=== PATIENT | female | born 1950 | race Caucasian/White ===

== ENCOUNTER → 2017-02-12 | Day surgery (SDC) | payer OTHER ==
[~2017-02-12] MED LIST: ACETAMINOPHEN 325 MG TAB PO ONE; DEXAMETHASONE 4 MG/ML VIAL IVP ONE; FAMOTIDINE 20 MG TAB PO ONE; LIDOCAINE 1% 2 ML INJ ID PRN; LIDOCAINE 2% 5 ML SDV ONE; LR 1,000 ML IV ONE; PROPOFOL/EMULSION 500 MG/50 ML BOTTLE IV ONE; ROPIVACAINE 0.2% 80 MG, EPINEPHrine 0.2 MG, KETOROLAC TROMETHAMINE 30 MG in BAG 0 ML IU ONE; TRANEXAMIC ACID 3,000 MG in NS 50 ML IRR ONE; TRANEXAMIC ACID 3,000 MG/50 ML BAG IRR ONE; VANCOMYCIN 1 GM VIAL ONE; ceFAZolin 2 GM/DEXTROSE 100 ML IV ONE
--- NOTE | 2017-02-12 10:41 | PDHPUP ---
History & Physical Update H&P update statement: This history and physical update is based on an assessment of the patient which was completed after admission or registration (within 24 hours), but prior to the surgery/procedure. H&P update: H&P reviewed & patient examined, no change in patient's condition since H&P completed
[2017-02-12 11:06] VITALS: BP 122/76; PULSE 89; RESP 16; TEMP 97.7; O2SAT 94
== END | disposition home or self-care (01) ==
LOC: F3N 09:58 → UNDOADMIN 09:58 → FSGY 09:58 → EDSTATUS 12:15
PROVIDERS: ATTEND Orthopaedic Surgery
DX: M17.11 Unilateral primary osteoarthritis, right knee (principal); Z53.09 Procedure and treatment not carried out because of other contraindication
CPT/HCPCS: J0171; J0690; J1100; J1885; J2704; J2795; J3370

== ENCOUNTER 2017-02-21 08:20 | Inpatient (IN) | payer OTHER ==
[~2017-02-21 08:20] MED LIST changes: -ACETAMINOPHEN 325 MG TAB PO ONE; -DEXAMETHASONE 4 MG/ML VIAL IVP ONE; -FAMOTIDINE 20 MG TAB PO ONE; -LIDOCAINE 1% 2 ML INJ ID PRN; -LIDOCAINE 2% 5 ML SDV ONE; -LR 1,000 ML IV ONE; -PROPOFOL/EMULSION 500 MG/50 ML BOTTLE IV ONE; -ceFAZolin 2 GM/DEXTROSE 100 ML IV ONE
[2017-02-21] MEDS ORDERED: DEXAMETHASONE 4 MG/ML VIAL IVP ONE (09:09)
[2017-02-21] MEDS ORDERED: FAMOTIDINE 20 MG TAB PO ONE (09:09)
[2017-02-21] MEDS ORDERED: ACETAMINOPHEN 325 MG TAB PO ONE (09:09)
[2017-02-21] MEDS ORDERED: ceFAZolin 2 GM/DEXTROSE 100 ML IV ONE (09:09)
[2017-02-21] MEDS ORDERED: LR 1,000 ML IV ONE (09:19)
[2017-02-21] MEDS ORDERED: LIDOCAINE 1% 2 ML INJ ID PRN (09:19)
--- NOTE | 2017-02-21 09:57 | PDANEPAE ---
ANE History of Present Illness 66 yo F here with OA for R TKA ANE Past Medical History - Cardiovascular History Hx Hypertension: No Hx Arrhythmias: No Hx Chest Pain: No Hx Coronary Artery / Peripheral Vascular Disease: No Hx CHF / Valvular Disease: No Hx Palpitations: No - Pulmonary History Hx COPD: No Hx Asthma/Reactive Airway Disease: No Hx Recent Upper Respiratory Infection: No Hx Oxygen in Use at Home: No Hx Sleep Apnea: No Sleep Apnea Screening Result - Last Documented: Negative - Neurologic History Hx Cerebrovascular Accident: No Hx Seizures: No Hx Dementia: No - Endocrine History Hx Diabetes: No - Renal History Hx Renal Disorders: No - Liver History Hx Hepatic Disorders: No - Neurological & Psychiatric Hx Hx Neurological and Psychiatric Disorders: No - Cancer History Hx Cancer: Yes Cancer History Comment: SKIN CANCER 2010 AND 2015 - Congenital Disorder History Hx Congenital Disorders: No - GI History Hx Gastrointestinal Disorders: No - Chronic Pain History Chronic Pain: Yes (RIGHT KNEE AND RIGHT FOOT) - Surgical History Prior Surgeries: CATARACT SURGERY OU 08/2016. DENTAL IMPLANTS X 2. LEFT HIP REPLACEMENT 2012. LEFT KNEE REPLACEMENT 16 YRS AGO. HYSTERECTOMY 25 YRS AGO ANE Review of Systems - Exercise capacity METS (RN): 4 METS - Systems Muscolosketal: Reports: other (OA) ANE Patient History - Allergies Allergies/Adverse Reactions: No Known Allergies Allergy (Unverified 02/04/17 10:49) - Home Medications Home medications: home medication list seen and reviewed Home Medications: Multivitamins [Multivitamin (*)] 2 each PO DAILY 02/04/17 [Last Taken Unknown] - NPO status NPO Since - Liquids (Date): 02/21/17 NPO Since - Liquids (Time): 06:45 NPO Since - Solids (Date): 02/20/17 NPO Since - Solids (Time): 19:30 - Anes Hx Anes Hx: slow to awaken from anesthesia - Smoking Hx Smoking Status: Never smoked - Alcohol Use Alcohol Use: Occasionally - Family Anes Hx Family Anes Hx: none Family Hx Anesthesia Complications: NEG ANE Labs/Vital Signs - Vital Signs Blood Pressure: 133/86 Heart Rate: 74 Respiratory Rate: 18 O2 Sat (%): 95 Height: 160.02 cm Weight: 78.925 kg ANE Physical Exam - Airway Neck exam: FROM Mallampati Score: Class 3 Mouth exam: normal dental/mouth exam - Pulmonary Pulmonary: no respiratory distress, clear to auscultation - Cardiovascular Cardiovascular: regular rate and rhythym, no murmur, rub, or gallop - ASA Status ASA Status: II ANE Anesthesia Plan Anesthesia Plan: MAC, spinal Regional Anesthesia: adductor canal FNB
[2017-02-21] MEDS ORDERED: MIDAZOLAM 2 MG/2 ML VIAL IVP ONE (09:59)
[2017-02-21] MEDS ORDERED: MIDAZOLAM 2 MG/2 ML VIAL ONE (10:07)
[2017-02-21] MEDS ORDERED: PROPOFOL/EMULSION 500 MG/50 ML BOTTLE IV ONE (10:08)
[2017-02-21] MEDS ORDERED: ONDANSETRON DISINTEGRATING 4 MG TAB PO PRN (10:40)
[2017-02-21] MEDS ORDERED: DIPHENOXYLATE/ATROPINE LOMOTIL 1 TAB PO PRN (10:40)
[2017-02-21] MEDS ORDERED: PROMETHAZINE HCL 25 MG SUPPR PR PRN (10:40)
[2017-02-21] MEDS ORDERED: LACTULOSE 20 GM/30 ML UDCUP PO PRN (10:40)
[2017-02-21] MEDS ORDERED: diphenhydrAMINE 25 MG CAP PO PRN (10:40)
[2017-02-21] MEDS ORDERED: ONDANSETRON 4 MG/2 ML VIAL IVP PRN ×2 (10:40→11:44)
[2017-02-21] MEDS ORDERED: PROMETHAZINE HCL 25 MG/ML INJ IVP PRN (10:40)
[2017-02-21] MEDS ORDERED: MAGNESIUM HYDROXIDE 30 ML UDCUP PO PRN (10:40)
[2017-02-21] MEDS ORDERED: BISACODYL 10 MG SUPP PR PRN (10:40)
[2017-02-21] MEDS ORDERED: PHARMACY PAIN CONSULT 1 EA MISC PRN (10:40)
[2017-02-21] MEDS ORDERED: METOCLOPRAMIDE 10 MG/2 ML VIAL IVP PRN (10:40)
[2017-02-21] MEDS ORDERED: TEMAZEPAM 15 MG CAP PO PRN (10:40)
[2017-02-21] MEDS ORDERED: POLYETHYLENE GLYCOL 3350 17 GM PKT PO PRN (10:40)
[2017-02-21] MEDS ORDERED: clonIDINE 1 MG/10 ML VIAL EP ONE (10:56)
[2017-02-21] MEDS ORDERED: ROPIVACAINE HCL 150 MG/30 ML INJ ONE (10:56)
[2017-02-21] MEDS ORDERED: PROPOFOL 200 MG/20 ML VIAL ONE (11:25)
--- NOTE | 2017-02-21 11:42 | POSTOPPROG ---
Post Op Note Date of Operation: 02/21/17 Surgeon: Olimpia Salmon [id number] Architect: Grecia Salmon PAc Anesthesiologist: Chrissie Anesthesia: Spinal Pre-op Diagnosis: R knee DJD Post-op Diagnosis: same Indication: pain Procedure: R TKA Findings: DJD knee Inf/Abcess present in the surg proc area at time of surgery?: No EBL: 50-100
[2017-02-21] MEDS ORDERED: HYDROmorphONE/DILAUDID 1 MG/ML SYR IVP PRN (11:44)
[2017-02-21] MEDS ORDERED: NALOXONE HCL 0.4 MG/ML INJ IVP PRN (11:44)
[2017-02-21] MEDS ORDERED: fentaNYL 100 MCG/2 ML INJ IVP PRN (11:44)
[2017-02-21] MEDS ORDERED: ACETAMINOPHEN 500 MG TAB PO PRN (11:44)
[2017-02-21] MEDS ORDERED: OXYCODONE/APAP 5/325 TAB PO PRN (11:44)
[2017-02-21] MEDS: LR 1,000 ML IV SCH ×2 (13:40→15:36)
--- NOTE | 2017-02-21 15:06 | POSTANESTH ---
Post Anesthetic Evaluation Cardiovascular Status: Normal, Stable, Similar to Pre-Op Cond Respiratory Status: Normal, Stable, Similar to Pre-op Cond. Level of Consciousness/Mental Status: Can Participate in Eval, Alert and Oriented Pain Control: Adequate, Prn Tx Ordered Nausea/Vomiting Control: Adequate, Prn Tx Ordered Complications Possibly Related to Anesthesia: None Noted
[2017-02-21] MEDS: CYCLOBENZAPRINE 10 MG TAB PO PRN (15:35)
[2017-02-21] MEDS: ACETAMINOPHEN 325 MG TAB PO SCH ×3 (15:35→23:29)
[2017-02-21] MEDS: ceFAZolin 2 GM/DEXTROSE 100 ML IV SCH ×2 (15:36→22:07)
[2017-02-21] MEDS ORDERED: WARFARIN SODIUM 5 MG TAB PO SCH (16:00)
[2017-02-21] MEDS: oxyCODONE IR 5 MG TAB PO PRN ×2 (20:02→23:28)
[2017-02-21] MEDS: FAMOTIDINE 20 MG TAB PO SCH (20:03)
[2017-02-21] MEDS: SENNOSIDES/DOCUSATE SODIUM TAB PO SCH (20:03)
[2017-02-22] MEDS: oxyCODONE IR 5 MG TAB PO PRN ×3 (04:18→12:34)
[2017-02-22 05:19] LABS: HEMATOCRIT 42.4 % (38.0-47.0); HEMOGLOBIN 14.4 g/dL (12.6-16.3)
[2017-02-22 05:28] LABS: INR 1.05 (0.83-1.16); PROTIME(PATIENT) 13.6 SEC (12.0-15.0)
[2017-02-22] MEDS: ACETAMINOPHEN 325 MG TAB PO SCH ×2 (05:31→12:33)
[2017-02-22] MEDS: CYCLOBENZAPRINE 10 MG TAB PO PRN (08:27)
[2017-02-22] MEDS: SENNOSIDES/DOCUSATE SODIUM TAB PO SCH (08:27)
[2017-02-22] MEDS: FAMOTIDINE 20 MG TAB PO SCH (08:27)
[2017-02-22] MEDS ORDERED: ENOXAPARIN 40 MG/0.4 ML SYR SC SCH (09:00)
--- NOTE | 2017-02-22 09:56 | SOAPPROG ---
[facility] Progress Note Assessment/Plan: Assessment: Zelalem is doing well POD 1 s/p R TKA 1) pain management: pain is well controlled on oral pain meds 2) VTE ppx: recommend coumadin and lovenox daily and DEONDRE hose 3) d/c planning: d/c to home pending release from PT today 4) postop urinary retention: straight cath'd yesterday, resolved today Plan: 02/22/17 09:54 Subjective: Zelalem is doing well today, denies SOB, chest pain and N/v. patient is pleased that her knee now goes straight Objective: Vital Signs Temp Pulse Resp BP Pulse Ox 36.7 C 66 16 117/72 94 02/22/17 07:26 02/22/17 07:26 02/22/17 07:26 02/22/17 07:26 02/22/17 07:26 Laboratory Results 02/22/17 04:45 02/21/17 02/22/17 02/23/17 05:59 05:59 05:59 Intake Total 1800 Output Total 1720 Balance 80 PT 13.6 SEC (12.0-15.0) 02/22/17 04:45 INR 1.05 (0.83-1.16) 02/22/17 04:45 RLE: incision dressing is clean and dry, NVI, +pf/df ICD10 Worksheet Patient Problems: Problems Problem Status Onset Primary localized osteoarthritis of right knee Acute
[2017-02-22 11:44] VITALS: BP 111/62; PULSE 65; RESP 12; TEMP 98.2; O2SAT 98
--- NOTE | 2017-02-27 07:22 | GOP ---
[f rep st] OPERATIVE REPORT DATE OF OPERATION: 02/21/2017 SURGEON: Eugenia Salmon MD INSTRUMENT OPERATOR: CELINA Huynh. ANESTHESIA: Spinal. PREOPERATIVE DIAGNOSIS: Right knee osteoarthritis. POSTOPERATIVE DIAGNOSIS: Right knee osteoarthritis. PROCEDURE PERFORMED: Right total knee arthroplasty. FINDINGS: ESTIMATED BLOOD LOSS: 30 cc. INDICATIONS: This is a 66-year-old female with severe and progressive pain and deformity of the rig ht knee unresponsive to conservative care. Risks and benefits of the surgical intervention were exp lained in detail. DESCRIPTION OF PROCEDURE: The patient was brought to the operative room and placed on the table in the supine position. Spinal anesthesia was induced without difficulty. A pneumatic tourniquet was applied about the right proximal thigh, and the leg was prepped and draped in a sterile fashion. Th e leg velasquez was applied. After exsanguination by elevation the tourniquet was inflated to 250 mm o f mercury. Incision was made anterior medial from the tibial tuberosity to a point 2 cm proximal to the superio r pole of the patella. Medial parapatellar arthrotomy was carried out from the superior pole of the patella and posteriorly in line with the fibers of the Type VMO. The medial collateral ligament was elevated and the infrapatellar fat pad was resected. The patella was everted and the articular surface was excised. A 32 mm patellar button was placed. The distal femoral guide hole was drilled and the 10 degree alignment becca was placed. A 9 mm distal femoral cut was made without difficulty. Attention was turned to the tibia and a standard 9 mm cut based on the lateral tibial condyle was p erformed. The tibial articular surface was excised without difficulty. Attention was turned back to the femur and a size femoral cutting block was positioned. Anterior, posterior, and chamfer cuts were made, followed by the intercondylar box cut. The knee was extended and the remnants of the medial and lateral meniscus were excised. The posteri or capsule was injected with ropivacaine, epinephrine and Toradol. A size 9 tibial tray was positio jarrod. Trial reduction was then carried out. There was excellent range of motion, alignment, and sta bility using the 9 mm polyethylene. All trials were then removed. The joint was thoroughly irrigated and carefully dried. Two packages of cement and 2 grams of vancomycin were mixed in the vacuum mixer and placed on the fixation surfa prince of all surfaces of the components. The components were implanted and all excess cement was thor oughly removed. The permanent 9 mm polyethylene was placed without difficulty. The tourniquet was deflated and all bleeders were coagulated. The wound was thoroughly irrigated an d closed using interrupted sutures of 2-0 Vicryl for the joint capsule. The subcu was closed with 3 -0 Vicryl and the skin with 4-0 Monocryl. Dermabond and Steri-Strips were applied followed by a com pressive dressing. The patient was then moved from the operating room to the recovery room in good condition, having tolerated the procedure well. /[id number]/MODL
== END 2017-02-22 12:50 | disposition home or self-care (01) | DRG 470 ==
LOC: F3N 08:20
PROVIDERS: ADMIT Orthopaedic Surgery; ATTEND Orthopaedic Surgery
PROC: 0SRC0JZ Replacement of Right Knee Joint with Synthetic Substitute, Open Approach (ICD-10-PCS; principal; 2017-02-21 10:15)
DX: M17.11 Unilateral primary osteoarthritis, right knee (principal); Z96.652 Presence of left artificial knee joint
CPT/HCPCS: 97110-GP; 97116-GP; 97161-GP; 97165-GO; C1713; G8978-GP-CJ; G8979-GP-CI; G8980-GP-CI; G8987-GO-CI; G8988-GO-CI; G8989-GO-CI; J0171; J0690; J0735; J1100; J1650; J1885; J2250; J2704; J2795; J3370